=== PATIENT | male | born 1975 | race Caucasian/White ===

== ENCOUNTER 2016-12-02 15:17 | Emergency (ER) | payer OTHER ==
[~2016-12-02] VITALS: Ht 185.4 cm; Wt 86.2 kg
[2016-12-02] MEDS ORDERED: LORazepam 2MG/ML-1ML VIAL ONE (15:44)
[2016-12-02] MEDS ORDERED: LORazepam 2MG/ML-1ML VIAL IV ONE (16:00)
[2016-12-02 16:02] LABS: Basophils # (auto) 0 uL; Basophils % (auto) 0.7 % (0.0-2.0); Eosinophils # (auto) 0.1 uL; Eosinophils % (auto) 0.9 % (0.0-7.0); Hematocrit 44.6 % (41.0-53.0); Hemoglobin 15.3 g/dL (13.5-17.5); Lymphocytes % (auto) 33.4 % (10.0-50.0); Mean Corpuscular Hemoglobin 28.6 pg (28.0-32.0); Mean Corpuscular Hgb Conc. 34.2 g/dL (32.0-36.0); Mean Corpuscular Volume 83.8 fL (80.0-100.0); Mean Platelet Volume 7.9 fL (7.4-10.4); Monocytes # (auto) 0.5 uL; Monocytes % (auto) 7.6 % (0.0-12.0); Neutrophils # (auto) 3.5 uL; Neutrophils % (auto) 57.4 % (37.0-80.0); Platelet Count (auto) 230 10^3/uL (140-450); Red Cell Distribution Width 13.6 % (11.6-16.0)
[2016-12-02 16:19] LABS: Albumin 3.9 g/dL (3.4-5.0); Anion Gap 8 (5-15); Aspartate Aminotransferase 22 U/L (15-37); BUN/Creatinine Ratio 10.1; Blood Urea Nitrogen 10 mg/dL (7-18); Calcium 8.7 mg/dL (8.5-10.1); Carbon Dioxide 28 mmol/L (21-32); Chloride 106 mmol/L (98-107); GFR African American 108 mL/min; GFR Non-African American 89 mL/min; Glucose 103 mg/dL (74-106); Potassium 3.5 mmol/L (3.5-5.1); Sodium 142 mmol/L (136-145)
[2016-12-02 16:25] LABS: Alkaline Phosphatase 50 U/L (45-117); Bilirubin, Total 0.5 mg/dL (0.2-1.0); Total Protein 7.5 g/dL (6.4-8.2)
[2016-12-02 17:10] VITALS: BP 140/87
[2016-12-02 17:10] LABS: Urine Bilirubin Negative (Negative); Urine Blood Negative /uL (Negative); Urine Color Yellow (Yellow); Urine Glucose Normal (Normal); Urine Ketone Negative (Negative); Urine Nitrite Negative (Negative); Urine RBC <1 /hpf (0 - 3); Urine Urobilinogen Normal (Negative); Urine pH 7.5 (5.0-8.0)
== END 2016-12-02 17:48 | disposition home or self-care (01) ==
LOC: ER 15:25
DX: F41.9 Anxiety disorder, unspecified (principal)
CPT/HCPCS: 36415; 71010; 80053; 81001; 84484; 85025; 93005; 96374; 99285; G0434; J2060; J7030